=== PATIENT | female | born 2005 | race African-American/Black ===

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

== ENCOUNTER 2024-04-17 00:01 | Emergency (ER) | payer MEDICAID ==
[~2024-04-17] VITALS: Ht 162.6 cm; Wt 58.2 kg
[~2024-04-17 00:01] MED LIST: ACET1CAP14 PO; CEPH-510 PO; MAGN400S25 PO
[2024-04-17] MEDS ORDERED: PANTOPRAZOLE 40 MG TAB PO ONE (01:15)
[2024-04-17] MEDS ORDERED: OMEP-335 PO (01:41)
[2024-04-17 02:00] VITALS: BP 114/77; PULSE 68; RESP 15; TEMP 98.8; O2SAT 100
== END 2024-04-17 02:05 | disposition home or self-care (01) ==
LOC: ER 00:01
DX: K29.70 Gastritis, unspecified, without bleeding (principal); Z79.1 Long term (current) use of non-steroidal anti-inflammatories (NSAID)

== ENCOUNTER 2025-02-08 00:34 | Inpatient (IN) | payer MEDICAID ==
[~2025-02-08] VITALS: Ht 162.6 cm; Wt 57.7 kg
[2025-02-08] VITALS (7 sets, daily range): BP systolic 102–118; BP diastolic 64–85; PULSE 71–97; RESP 16–19; TEMP 97.6–98.1; O2SAT 94–99
[~2025-02-08 00:34] MED LIST changes: +OMEP-335 PO
[2025-02-08 01:15] LABS: Basophils # (auto) 0 10 ^3/uL (0-0.2); Basophils % (auto) 0.4 % (0.0-2.0); Eosinophils # (auto) 0 10 ^3/uL (0-0.8); Eosinophils % (auto) 0.1 % (0.0-7.0); Hematocrit 32.4 % (36.0-46.0); Hemoglobin 10.2 g/dL (12.2-16.2); Lymphocytes # (auto) 0.7 10 ^3/uL (0.4-5.4); Lymphocytes % (auto) 8.4 % (10.0-50.0); Mean Corpuscular Hgb Conc. 31.6 g/dL (32.0-36.0); Mean Corpuscular Volume 69.7 fL (80.0-100.0); Monocytes # (auto) 0.4 10 ^3/uL (0-1.3); Monocytes % (auto) 4.9 % (0.0-12.0); Neutrophils % (auto) 86.2 % (37.0-80.0); Nucleated Red Blood Cells % 0.1 %; Platelet Count (auto) 247 10^3/uL (140-450); Red Blood Cells 4.65 10^6/uL (4.0-5.20); White Blood Cell 8.1 10^3/uL (4.4-10.8)
[2025-02-08 01:37] LABS: Sodium 140 mmol/L (136-145)
[2025-02-08 01:38] LABS: Anion Gap 11 (5-15); Carbon Dioxide 21 mmol/L (20-31)
[2025-02-08 01:39] LABS: Calcium 10.3 mg/dL (8.7-10.4)
[2025-02-08 01:41] LABS: Urine Bacteria FEW /hpf (None Seen); Urine Blood 3+ /uL (Negative); Urine Budding Yeast OCCASIONAL /hpf (None Seen); Urine Clarity Turbid (Clear); Urine Color Light-Yellow (Yellow); Urine Mucus FEW (None Seen); Urine Protein, UAD TRACE (Negative); Urine Squamous Epithelial Cell FEW /hpf (<5); Urine Urobilinogen Normal (Negative); Urine WBC 1 /HPF (0-5); Urine pH 6.5 (5.0-9.0)
[2025-02-08 01:43] LABS: Chloride 108 mmol/L (98-107)
[2025-02-08 01:44] LABS: BUN/Creatinine Ratio 18.6 (10.0-20.0); Blood Urea Nitrogen 18 mg/dL (9-23); Glucose 85 mg/dL (74-106)
--- NOTE | 2025-02-08 01:46 | DVH ---
INDICATION: Bilateral pelvic pain TECHNIQUE: Multiple real-time grayscale transabdominal sonographic images along with color and duplex Doppler of the uterus and ovaries were obtained. COMPARISON: None FINDINGS / IMPRESSION: Uterus measures approximately 8.1 x 4.7 x 5 cm and appears unremarkable. Endometrium measures 7.5 mm in thickness with non abnormality demonstrated. Right ovary measures approximately 3 x 2.6 x 2.5 cm and appears unremarkable. Left ovary could not be visualized. Subsequent color and duplex Doppler interrogation of the ovaries demonstrated symmetric vascular flow to both ovaries.
[2025-02-08] MEDS ORDERED: HYDR-4902 PO (02:31)
[2025-02-08] MEDS ORDERED: IBUP-1454 PO (02:31)
[2025-02-08] MEDS ORDERED: ZOFR4T PO (02:31)
--- NOTE | 2025-02-08 02:32 | ED.PDOC ---
General HPI Comments This patient is a pleasant 19-year-old female who arrives the ED today for evaluation of bilateral lower abdominal/pelvic pain for the past day with intermittent nausea and vomiting. Patient states the symptoms came on quickly and has been relatively unrelenting. Patient denies any fever. Patient does state a history of kidney stones. Patient has a history of ovarian cysts or uterine fibroids. Vital signs were stable at arrival. Chief Complaint: Abdominal Pain Time Seen by MD: 00:39 Primary Care Provider: MARY Matos notes: Nurses Notes Allergies: Coded Allergies: NO KNOWN ALLERGIES (Unverified , 07/19/18) Home Meds Active Scripts Omeprazole (Omeprazole) 20 Mg Tab, 20 MG PO DAILY, #30 TAB Prov:ALONA MAR PAC 04/17/24 Acetaminophen (Tylenol) 325 Mg Cap, 325 MG PO Q4HPRN PRN, #30 CAP 0 Refills Take 1-2 caps po q4h prn for pain/fever Prov:STEPHENIE CHASE [facility] 11/07/22 Magnesium Hydroxide (Milk Of Magnesia) 400 Mg/5 Ml Shanna, 30 ML PO DAILYPRN PRN, #355 ML 0 Refills 30 to 60 mL p.o. daily as needed. Max: 60 mL in 24 hours Prov:STEPHENIE CHASE [facility] 11/07/22 Cephalexin ( Keflex 500) 500 Mg Cap, 1 CAP PO QID for 10 Days, #40 CAP 0 Refills Prov:STEPHENIE CHASE [facility] 11/07/22 Information Source: Patient, Relative (Mother) Mode of Arrival: Wheelchair Severity: Moderate Timing: Hours Duration: Since onset Prehospital treatment: None Onset: Spontaneous Symptoms: None History of: Kidney stone Location: Other (Bilateral lower abdomen/pelvis.) associated signs and symptoms: Abdominal Pain, Nausea, Vomiting Past Medical History PAST MEDICAL HISTORY: Kidney Stones Surgical History: Denies all surgeries SUPERVISING FLOORPERSON History: No Pertinent SUPERVISING FLOORPERSON History Family History Family History: Reviewed,noncontributory to illness, Unknown Social History Smoker: Non-Smoker Alcohol: Denies ETOH Use Drugs: Denies Drug Use Lives In: Home Constitutional: denies: chills, diaphoresis, fatigue, fever, malaise, sweats, weakness, others EENTM: denies: blurred vision, double vision, ear bleeding, ear discharge, ear drainage, ear pain, ear ringing, eye pain, eye redness, hearing loss, mouth pain, mouth swelling, nasal discharge, nose bleeding, nose congestion, nose pain, photophobia, tearing, throat pain, throat swelling, voice changes, others Respiratory: denies: cough, hemoptysis, orthopnea, SOB at rest, shortness of breath, SOB with excertion, stridor, wheezing, others Cardiovascular: denies: chest pain, dizzy spells, diaphoresis, Dyspnea on exertion, edema, irregular heart beat, left arm pain, lightheadedness, palpitations, PND, syncope, others Gastrointestinal: reports: abdominal pain, nausea, vomiting; denies: abdomen distended, blood streaked bowels, constipated, diarrhea, dysphagia, difficulty swallowing, hematemesis, melena, poor appetite, poor fluid intake, rectal bleeding, rectal pain, others Genitourinary: denies: abnormal vagina bleeding, burning, dyspareunia, dysuria, flank pain, frequency, hematuria, incontinence, pain, , vagina discharge, urgency, others Neurological: denies: dizziness, fainting, headache, left sided numbness, left sided weakness, numbness, paresthesia, pre-existing deficit, right sided numbness, right sided weakness, seizure, speech problems, tingling, tremors, weakness, others Musculoskeletal: denies: back pain, gout, joint pain, joint swelling, muscle pain, muscle stiffness, neck pain, others Integumetry: denies: bruises, change in color, change in hair/nails, dryness, laceration, lesions, lumps, rash, wounds, others Allergic/Immunocompromised: denies: Difficulty Healing, Frequent Infections, Hives, Itching, others Hematologic/Lymphatic: denies: anemia, blood clots, easy bleeding, easy bruising, swollen glands, others Endocrine: denies: excessive hunger, excessive sweating, excessive thirst, excessive urination, flushing, intolerance to cold, intolerance to heat, unexplained weight gain, unexplained weight loss, others Psychiatric: denies: anxiety, bipolar disorder, depression, hopeless, panic disorder, schizophrenia, sleepless, suicidal, others Physical Exam General Appearance: Moderate Distress (Moderate distress due to lower abdominal pain concerns.), Normal HEENT: Normal ENT Inspection, Pharynx Normal, TMs Normal Neck: Full Range of Motion, Non-Tender, Normal, Normal Inspection Respiratory: Chest Non-Tender, Lungs Clear, No Accessory Muscle Use, No Respiratory Distress, Normal Breath Sounds Cardiovascular: No Edema, No JVD, No Murmur, No Gallop, Normal Peripheral Pulses, Regular Rate/Rhythm Breast Exam: Deferred Gastrointestinal: Other (Diffuse bilateral lower abdominal/pelvic tenderness to palpation. Abdomen was reasonably soft. No pulsatile masses.) Genitalia: Deferred Pelvic: Deferred Rectal: Deferred Extremities: No calf tenderness, Normal capillary refill, Normal inspection, Normal range of motion, Non-tender, No pedal edema Neurologic: Alert, No Motor Deficits, Normal Affect, Normal Mood, No Sensory D eficits Cerebellar Function: Normal Reflexes: Normal Skin: Dry, Normal Color, Warm Lymphatic: No Adenopathy Was a procedure done? Was a procedure done?: No Differential Diagnosis Kidney stone (Female): Urinary obstruction, Urolithiasis, Other (UTI, ovarian cyst, uterine fibroids, constipation) X-Ray, Labs, Meds, VS Vital Signs Date Time Temp Pulse Resp B/P (MAP) Pulse Ox O2 Delivery O2 Flow Rate FiO2 02/08/25 00:50 98.5 89 16 136/76 (96) 98 98.5 Lab Test 02/08/25 01:00 02/08/25 00:50 Range/Units White Blood Count 8.1 4.4-10.8 10^3/uL Red Blood Count 4.65 4.0-5.20 10^6/uL Hemoglobin 10.2 L 12.2-16.2 g/dL Hematocrit 32.4 L 36.0-46.0 % Mean Corpuscular Volume 69.7 L 80.0-100.0 fL Mean Corpuscular Hemoglobin 22.0 L 28.0-32.0 pg Mean Corpuscular Hemoglobin Concent 31.6 L 32.0-36.0 g/dL Red Cell Distribution Width 16.0 H 11.8-14.3 % Platelet Count 247 140-450 10^3/uL Mean Platelet Volume 7.8 6.9-10.8 fL Neutrophils (%) (Auto) 86.2 H 37.0-80.0 % Lymphocytes (%) (Auto) 8.4 L 10.0-50.0 % Monocytes (%) (Auto) 4.9 0.0-12.0 % Eosinophils (%) (Auto) 0.1 0.0-7.0 % Basophils (%) (Auto) 0.4 0.0-2.0 % Neutrophils # (Auto) 7.0 1.6-8.6 10 ^3/uL Lymphocytes # (Auto) 0.7 0.4-5.4 10 ^3/uL Monocytes # (Auto) 0.4 0-1.3 10 ^3/uL Eosinophils # (Auto) 0 0-0.8 10 ^3/uL Basophils # (Auto) 0 0-0.2 10 ^3/uL Nucleated Red Blood Cells 0.1 % Sodium Level 140 136-145 mmol/L Potassium Level 4.0 3.5-5.1 mmol/L Chloride Level 108 H 98-107 mmol/L Carbon Dioxide Level 21 20-31 mmol/L Anion Gap 11 5-15 Blood Urea Nitrogen 18 9-23 mg/dL Creatinine 0.97 0.550-1.02 mg/dL Glomerular Filtration Rate Calc 85 >90 mL/min BUN/Creatinine Ratio 18.6 10.0-20.0 Serum Glucose 85 74-106 mg/dL Calcium Level 10.3 8.7-10.4 mg/dL Urine Color Light-yellow Yellow Urine Clarity Turbid H Clear Urine pH 6.5 5.0-9.0 Urine Specific [place] 1.030 1.001-1.035 Urine Protein Trace H Negative Urine Ketones 3+ H Negative Urine Blood 3+ H Negative /uL Urine Nitrite Negative Negative Urine Bilirubin Negative Negative Urine Urobilinogen Normal Negative mg/dL Urine Leukocyte Esterase Negative Negative /uL Urine RBC 512 0 - 4 /hpf Urine Microscopic WBC 1 0-5 /HPF Urine Squamous Epithelial Cells Few <5 /hpf Urine Bacteria Few H None Seen /hpf Urine Mucus Few None Seen Urine Yeast (Budding) Occasional None Seen /hpf Urine Glucose Normal Normal mg/dL Urine Test Negative Negative X-Ray, Labs, Meds, VS Comment All studies performed the ED were evaluated by me personally. Serum studies were unremarkable for any systemic process, but urinalysis confirmed a large red blood cell burden indicative of a kidney stone event. Pelvic ultrasound was unremarkable for any ovarian cyst or fibroid concerns. CT of the abdomen and pelvis pending at time of this note. Patient care will be transferred to Dr. White for evaluation of CT results when returned. Once reviewed, she will respond accordingly. Time of 1ST Reevaluation: 02:29 Reevaluation 1ST: Improved Consultation: PCP Patient Education/Counseling: Diagnosis, Treatment Family Education/Counseling: Diagnosis, Treatment Departure 1 Departure Time of Disposition: : Impression: Primary Impression: Hematuria Disposition: 30 STILL A PATIENT Condition: Stable e-Prescriptions Ondansetron Odt 4MG Tab (ZOFRAN PO) 4 Mg Tb 4 MG PO Q6HP PRN, #20 TAB ODT TAB-DISSOLVE IN MOUTH, THEN SWALLOW Prov: HAN DICKENS PAC 02/08/25 Hydrocodone-Acetaminophen (Hydrocodone Bitartrate/AC 5-325 mg) 1 Tab Tab 1 TAB PO Q6HP PRN, #20 TAB Prov: HAN DICKENS PAC 02/08/25 Ibuprofen (Ibuprofen) 600 Mg Tab 1 TAB PO Q6HP PRN, #30 TAB Prov: HAN DICKENS PAC 02/08/25 Discharged With: Self, Relative (Mother) Critical Care Note Critical Care Time?: No Stability Stability form required: No Heart Score Heart Score: Heart Score Response (Comments) Value History N/A 0 EKG N/A 0 Age N/A 0 Risk Factors N/A 0 Troponin N/A 0 Total 0 HAN DICKENS PAC February 08, 2025 02:32
--- NOTE | 2025-02-08 03:14 | DVH ---
Exam: CT CT AB PEL WO CON-NO ORAL OR IV History: Hematuria/kidney stone concerns Comparison Study: None Technique: Multidetector spiral CT of the abdomen was performed from lung bases to pubic symphysis. I maging was performed without IV contrast. Axial, coronal and sagittal multiplanar reformats were obta ined from the axial data set by the technologist. Radiation Dose : 1. Abdomen/Pelvis: CTDIvol 5.45 mGy, DLP 316.95 mGy*cm. Findings: Evaluation of solid organs is limited due to lack of intravenous contrast use. Lung Bases: No acute or significant lung base finding. Normal heart size. No pleural or pericardial effusion. Liver: The liver is normal in size. No focal lesions. Gallbladder and Biliary Tree: Unremarkable Spleen: Unremarkable Pancreas: The pancreas is grossly normal in appearance. Adrenal Glands: Unremarkable Kidneys: Moderate right hydronephrosis secondary to a partially obstructing proximal ureteral calculu s measuring 0.3 cm. The left kidney is normal in appearance. Bladder: Grossly unremarkable for degree of distention. Bowel: The stomach is grossly normal in appearance. Small bowel and colon are normal in caliber and d istribution. The appendix is not visualized; however, no secondary findings of acute appendicitis kelli ntified. Ascites: Likely physiologic pelvic cul-de-sac free fluid. Lymphadenopathy: No mesenteric, retroperitoneal or periportal lymphadenopathy. Abdominal Wall and Mesentery: Unremarkable. Vasculature: The visualized abdominal aorta is normal in size and caliber. Evaluation of abdominal a nd pelvic vessels is limited due to lack of intravenous contrast. Pelvic Organs: Unremarkable Musculoskeletal: No aggressive focal bony lesions, acute fractures or dislocation. IMPRESSION: 1. Moderate right hydronephrosis secondary to a partially obstructing proximal 0.3 cm ureteral calcul us. Radiation optimization: All CT scans at this facility use at least one of these dose optimization jason hniques: automated exposure control mA and/or kV adjustment per patient size (includes targeted exam s where dose is matched to clinical indication) or iterative reconstruction.
[2025-02-08] MEDS: HYDROcodone-ACET 10/325MG TAB PO ONE (03:19)
[2025-02-08] MEDS ORDERED: MORPHINE SULFATE INJ 2 MG/ml SYRG IV PRN (07:15)
--- NOTE | 2025-02-08 07:24 | DVHHP2 ---
History of Present Illness Reason for Visit: Abdominal pain History of Present Illness Anuradha Blake is a 19-year-old female with past medical history of kidney stones who presents to the ED with suprapubic abdominal pain with nausea and vomiting x2 days. She reports that the current pain after the medication is 1/10 cramping like and intermittent in nature. She also reports that she vomited clear contents and food particles. She denies any recent sick contacts, recent trauma or injury, recent ingestion of spoiled food, recent travels, fever, chills, chest pain, shortness of breath, lightheadedness, weakness, dizziness, or diarrhea. She stated that 4 years ago she has a history of kidney stones and was told that she would be able to have that passed through. Elsie Emilia at the bedside. Past Medical History Kidney stones Past Surgical History: None Family History: None Smoke: No ALCOHOL: occassional Drugs: Marijuana Lives: with Family Domestic Violence: Neg Review of Systems Gastrointestinal: Nausea, Vomiting, Abdominal Pain Allergies: Coded Allergies: NO KNOWN ALLERGIES (Unverified , 07/19/18) Exam Vital Signs Vital Signs Date Time Temp Pulse Resp B/P (MAP) Pulse Ox O2 Delivery O2 Flow Rate FiO2 02/08/25 04:51 98.6 99 14 117/71 (86) 100 98.6 02/08/25 03:20 Room Air* 0 21 General Appearance: Alert, Oriented X3, Cooperative, No acute distress HEENT: Atraumatic, PERRLA, EOMI, Mucous membr. moist/pink Respiratory: Clear to auscultation, Normal air movement Cardiovascular: Regular rate, Normal S1, Normal S2, No murmurs Abdominal: Normal bowel sounds, Soft Extremities: No clubbing, No cyanosis, No edema, Normal pulses, No tenderness/swelling Skin: No significant lesion Neuro: Normal speech, Strength at 5/5 X4 ext, Normal tone, Sensation intact Psych/Mental Status: Mental status NL, Mood NL Labs/Xrays Labs Test 02/08/25 01:00 02/08/25 00:50 Range/Units White Blood Count 8.1 4.4-10.8 10^3/uL Red Blood Count 4.65 4.0-5.20 10^6/uL Hemoglobin 10.2 L 12.2-16.2 g/dL Hematocrit 32.4 L 36.0-46.0 % Mean Corpuscular Volume 69.7 L 80.0-100.0 fL Mean Corpuscular Hemoglobin 22.0 L 28.0-32.0 pg Mean Corpuscular Hemoglobin Concent 31.6 L 32.0-36.0 g/dL Red Cell Distribution Width 16.0 H 11.8-14.3 % Platelet Count 247 140-450 10^3/uL Mean Platelet Volume 7.8 6.9-10.8 fL Neutrophils (%) (Auto) 86.2 H 37.0-80.0 % Lymphocytes (%) (Auto) 8.4 L 10.0-50.0 % Monocytes (%) (Auto) 4.9 0.0-12.0 % Eosinophils (%) (Auto) 0.1 0.0-7.0 % Basophils (%) (Auto) 0.4 0.0-2.0 % Neutrophils # (Auto) 7.0 1.6-8.6 10 ^3/uL Lymphocytes # (Auto) 0.7 0.4-5.4 10 ^3/uL Monocytes # (Auto) 0.4 0-1.3 10 ^3/uL Eosinophils # (Auto) 0 0-0.8 10 ^3/uL Basophils # (Auto) 0 0-0.2 10 ^3/uL Nucleated Red Blood Cells 0.1 % Sodium Level 140 136-145 mmol/L Potassium Level 4.0 3.5-5.1 mmol/L Chloride Level 108 H 98-107 mmol/L Carbon Dioxide Level 21 20-31 mmol/L Anion Gap 11 5-15 Blood Urea Nitrogen 18 9-23 mg/dL Creatinine 0.97 0.550-1.02 mg/dL Glomerular Filtration Rate Calc 85 >90 mL/min BUN/Creatinine Ratio 18.6 10.0-20.0 Serum Glucose 85 74-106 mg/dL Calcium Level 10.3 8.7-10.4 mg/dL Urine Color Light-yellow Yellow Urine Clarity Turbid H Clear Urine pH 6.5 5.0-9.0 Urine Specific [place] 1.030 1.001-1.035 Urine Protein Trace H Negative Urine Ketones 3+ H Negative Urine Blood 3+ H Negative /uL Urine Nitrite Negative Negative Urine Bilirubin Negative Negative Urine Urobilinogen Normal Negative mg/dL Urine Leukocyte Esterase Negative Negative /uL Urine RBC 512 0 - 4 /hpf Urine Microscopic WBC 1 0-5 /HPF Urine Squamous Epithelial Cells Few <5 /hpf Urine Bacteria Few H None Seen /hpf Urine Mucus Few None Seen Urine Yeast (Budding) Occasional None Seen /hpf Urine Glucose Normal Normal mg/dL Urine Test Negative Negative Exam: CT CT AB PEL WO CON-NO ORAL OR IV History: Hematuria/kidney stone concerns Comparison Study: None Technique: Multidetector spiral CT of the abdomen was performed from lung bases to pubic symphysis. Imaging was performed without IV contrast. Axial, coronal and sagittal multiplanar reformats were obtained from the axial data set by the technologist. Radiation Dose : 1. Abdomen/Pelvis: CTDIvol 5.45 mGy, DLP 316.95 mGy*cm. Findings: Evaluation of solid organs is limited due to lack of intravenous contrast use. Lung Bases: No acute or significant lung base finding. Normal heart size. No pleural or pericardial effusion. Liver: The liver is normal in size. No focal lesions. Gallbladder and Biliary Tree: Unremarkable Spleen: Unremarkable Pancreas: The pancreas is grossly normal in appearance. Adrenal Glands: Unremarkable Kidneys: Moderate right hydronephrosis secondary to a partially obstructing proximal ureteral calculus measuring 0.3 cm. The left kidney is normal in appearance. Bladder: Grossly unremarkable for degree of distention. Bowel: The stomach is grossly normal in appearance. Small bowel and colon are normal in caliber and distribution. The appendix is not visualized; however, no secondary findings of acute appendicitis identified. Ascites: Likely physiologic pelvic cul-de-sac free fluid. Lymphadenopathy: No mesenteric, retroperitoneal or periportal lymphadenopathy. Abdominal Wall and Mesentery: Unremarkable. Vasculature: The visualized abdominal aorta is normal in size and caliber. Evaluation of abdominal and pelvic vessels is limited due to lack of intravenous contrast. Pelvic Organs: Unremarkable Musculoskeletal: No aggressive focal bony lesions, acute fractures or dislocation. IMPRESSION: 1. Moderate right hydronephrosis secondary to a partially obstructing proximal 0.3 cm ureteral calculus. INDICATION: Bilateral pelvic pain TECHNIQUE: Multiple real-time grayscale transabdominal sonographic images along with color and duplex Doppler of the uterus and ovaries were obtained. COMPARISON: None FINDINGS / IMPRESSION: Uterus measures approximately 8.1 x 4.7 x 5 cm and appears unremarkable. Endometrium measures 7.5 mm in thickness with non abnormality demonstrated. Right ovary measures approximately 3 x 2.6 x 2.5 cm and appears unremarkable. Left ovary could not be visualized. Subsequent color and duplex Doppler interrogation of the ovaries demonstrated symmetric vascular flow to both ovaries. Assessment/Plan Assessment/Plan Assessment Intractable abdominal pain likely due to moderate right hydronephrosis secondary to a partially obstructing proximal 0.3 cm ureteral calculus Anemia Marijuana use Alcohol use History of nephrolithiasis Plan Admit to med surge Antiemetics Pain management CT abdomen and pelvis noted Pelvic ultrasound noted UA Flomax Strain all urine Adequate hydration IV fluids Diet Per patient she takes no home medications DVT prophylaxis-SCDs PUD prophylaxis-not indicated no history of GERD or GI bleed Discussed plan of care with patient, patient's mom, and nurse Counseled patient on cessation of marijuana use Counseled patient on cessation of alcohol use Plan discussed with: Patient My Orders Orders - GUY VELAZQUEZ Procedure Category Date Status Time Tamsulosin PHA 02/08/25 Transmitted Hydrochloride (Flomax) 07:15 Admit ADMIT 02/08/25 Transmitted 07:12 Allergies FARHAD 02/08/25 Transmitted 07:12 Code Status CODE 02/08/25 Transmitted 07:12 Hydrocodone-Acet PHA 02/08/25 Transmitted 5/325mg Tab (Bomoseen 07:15 Ondansetron Hcl PHA 02/08/25 Transmitted (Zofran) 07:15 Complete Blood Count LAB 02/09/25 Verified 04:00 Comprehensive LAB 02/09/25 Verified Metabolic Panel 04:00 Cardiac DIET 02/08/25 Transmitted Diet-2gna,Lofat,Lochol Breakfast Acetaminophen Tablet PHA 02/08/25 Transmitted (Tylenol Tablet) 07:15 Morphine Sulfate PHA 02/08/25 Transmitted Injection 07:15 Sequential FARHAD 02/08/25 Transmitted Compression Device Strain All Urine ED NURSING 02/08/25 Transmitted Date of Service: February 08, 2025 Billing Provider: GUY VELAZQUEZ Common Visit Codes: [id number] INP/OBS CARE (HIGH) GUY VELAZQUEZ February 08, 2025 07:24
[2025-02-08] MEDS: ONDANSETRON HCL 4 MG/2 ML VIAL IV ONE (07:59)
[2025-02-08] MEDS: TAMSULOSIN HYDROCHLORIDE 0.4 MG CAP PO SCH (08:59)
[2025-02-08] MEDS: SODIUM CHLORIDE 0.9% 1,000 ML IV SCH (09:01)
[2025-02-08] MEDS: INFLUENZA TRIVALENT 2024-2025 0.5 ML INJ IM ONE (12:08)
[2025-02-08] MEDS: HYDROcodone-ACET 5/325MG TAB PO PRN (15:32)
--- NOTE | 2025-02-08 23:07 | DVHPN2 ---
Gastrointestinal: Nausea, Vomiting, Abdominal Pain Objective Vitals Vital Signs Date Time Temp Pulse Resp B/P (MAP) Pulse Ox O2 Delivery O2 Flow Rate FiO2 02/08/25 21:00 97.9 85 19 109/64 (79) 96 97.9 02/08/25 20:00 Room Air* 0 21 Medications Current Medications Medications Dose Ordered Sig/Ninfa Route Start Time Stop Time Status Last Admin Dose Admin Tamsulosin HCl 0.4 mg QPM PO 02/08/25 07:15 02/08/25 18:05 0.4 MG Acetaminophen/ Hydrocodone Bitart 1 tab Q4HP PRN PO 02/08/25 07:15 02/08/25 15:32 1 TAB Ondansetron HCl 4 mg Q4HP PRN IV 02/08/25 07:15 Acetaminophen 650 mg Q6HP PRN PO 02/08/25 07:15 Morphine Sulfate 2 mg Q4HPRN PRN IV 02/08/25 07:15 Sodium Chloride 1,000 ml @ 100 mls/hr Q10H IV 02/08/25 08:00 02/08/25 18:07 100 MLS/HR Laboratory Results Laboratory Tests 02/08/25 01:00 Chemistry Test 02/08/25 01:00 Calcium Level 10.3 mg/dL (8.7-10.4) Urinalysis Test 02/08/25 00:50 Urine Color Light-yellow (Yellow) Urine Clarity Turbid (Clear) H Urine pH 6.5 (5.0-9.0) Urine Specific [place] 1.030 (1.001-1.035) Urine Protein Trace (Negative) H Urine Ketones 3+ (Negative) H Urine Blood 3+ /uL (Negative) H Urine Nitrite Negative (Negative) Urine Bilirubin Negative (Negative) Urine Urobilinogen Normal mg/dL (Negative) Urine Leukocyte Esterase Negative /uL (Negative) Urine RBC 512 /hpf (0 - 4) Urine Microscopic WBC 1 /HPF (0-5) Urine Squamous Epithelial Cells Few /hpf (<5) Urine Bacteria Few /hpf (None Seen) H Urine Mucus Few (None Seen) Urine Yeast (Budding) Occasional /hpf (None Urine Glucose Normal mg/dL (Normal) Urine Test Negative (Negative) ARGELIA STEVENSON MD February 08, 2025 23:06
[2025-02-09 05:00] VITALS: BP 118/67; PULSE 86; RESP 18; TEMP 97.7; O2SAT 99
[2025-02-09 06:29] LABS: Basophils # (auto) 0 10 ^3/uL (0-0.2); Hemoglobin 9.3 g/dL (12.2-16.2); Lymphocytes # (auto) 0.7 10 ^3/uL (0.4-5.4); Mean Corpuscular Volume 69.9 fL (80.0-100.0); Monocytes # (auto) 0.6 10 ^3/uL (0-1.3); Neutrophils # (auto) 2.2 10 ^3/uL (1.6-8.6); Nucleated Red Blood Cells % 0.1 %; White Blood Cell 3.6 10^3/uL (4.4-10.8)
[2025-02-09 06:31] LABS: Basophils % (auto) 0.6 % (0.0-2.0); Eosinophils # (auto) 0 10 ^3/uL (0-0.8); Eosinophils % (auto) 1.4 % (0.0-7.0); Hematocrit 29.2 % (36.0-46.0); Lymphocytes % (auto) 18.4 % (10.0-50.0); Mean Corpuscular Hemoglobin 22.3 pg (28.0-32.0); Mean Corpuscular Hgb Conc. 31.9 g/dL (32.0-36.0); Monocytes % (auto) 17.3 % (0.0-12.0); Neutrophils % (auto) 62.3 % (37.0-80.0); Platelet Count (auto) 204 10^3/uL (140-450); Red Blood Cells 4.17 10^6/uL (4.0-5.20); Red Cell Distribution Width 16.1 % (11.8-14.3)
[2025-02-09 06:45] LABS: Alanine Aminotransferase 13 U/L (7-40); Alkaline Phosphatase 48 U/L (46-116); Anion Gap 9 (5-15); BUN/Creatinine Ratio 11.3 (10.0-20.0); Blood Urea Nitrogen 9 mg/dL (9-23); Calcium 9.4 mg/dL (8.7-10.4); Carbon Dioxide 22 mmol/L (20-31); Glucose 83 mg/dL (74-106); Potassium 3.7 mmol/L (3.5-5.1); Sodium 139 mmol/L (136-145); Total Protein 6.9 g/dL (5.7-8.2)
[2025-02-09 06:46] LABS: Aspartate Aminotransferase 22 U/L (13-40); Bilirubin, Total 0.3 mg/dL (0.2-1.0)
[2025-02-09 06:56] LABS: Chloride 108 mmol/L (98-107)
[2025-02-09 09:00] VITALS: BP 118/78; PULSE 86; RESP 18; TEMP 97.9; O2SAT 97
[2025-02-09] MEDS: ONDANSETRON HCL 4 MG/2 ML VIAL IV PRN (09:15)
[2025-02-09 13:00] VITALS: BP 113/82; PULSE 87; RESP 18; TEMP 96.8; O2SAT 98
--- NOTE | 2025-02-09 14:34 | DVH ---
Date: 02/09/2025 02:00 PM Examination: XY KUB ABDOMEN SINGLE VIEW History: kidney stone Comparison: None TECHNIQUE: Frontal views of the abdomen was obtained. FINDINGS: Bowel gas pattern is unremarkable. The lung bases are unremarkable. No acute osseous abnormality identified. IMPRESSION: Nonobstructive bowel gas pattern. Large stool burden.
[2025-02-09 17:00] VITALS: BP 114/68; PULSE 84; RESP 18; TEMP 96.7; O2SAT 99
--- NOTE | 2025-02-09 23:07 | DVHPN2 ---
Subjective The patient is seen and examined at bedside. Still complain of severe abdominal pain and nausea. Reviewed: Care Plan, H&P, Labs, Medications, Previous Orders, Radiology Changes from previous H/P or p: No Changes Gastrointestinal: Nausea, Vomiting, Abdominal Pain Objective Vitals Vital Signs Date Time Temp Pulse Resp B/P (MAP) Pulse Ox O2 Delivery O2 Flow Rate FiO2 02/09/25 20:00 Room Air* 0 21 02/09/25 17:00 96.7 84 18 114/68 (83) 99 96.7 Intake/Output Intake and Output 02/09/25 07:00 Intake Total 2400 ml Balance 2400 ml Intake Oral 1400 ml IV Total 1000 ml # Voids 4 General Appearance: Alert, Oriented X3, Cooperative, mild distress HEENT: Atraumatic, PERRLA, EOMI, Mucous membr. moist/pink Neck: Supple Lungs: Clear to auscultation, Normal air movement Cardiovascular: Regular rate, Normal S1, Normal S2, No murmurs, Gallops, Rubs Abdomen: Normal bowel sounds, Soft, No tenderness Neuro: Cranial nerves 3-12 NL Psych/Mental Status: Mental status NL Medications Current Medications Medications Dose Ordered Sig/Ninfa Route Start Time Stop Time Status Last Admin Dose Admin Tamsulosin HCl 0.4 mg QPM PO 02/08/25 07:15 02/09/25 17:47 0.4 MG Acetaminophen/ Hydrocodone Bitart 1 tab Q4HP PRN PO 02/08/25 07:15 02/09/25 09:31 1 TAB Ondansetron HCl 4 mg Q4HP PRN IV 02/08/25 07:15 02/09/25 09:15 4 MG Acetaminophen 650 mg Q6HP PRN PO 02/08/25 07:15 Morphine Sulfate 2 mg Q4HPRN PRN IV 02/08/25 07:15 Sodium Chloride 1,000 ml @ 100 mls/hr Q10H IV 02/08/25 08:00 02/09/25 04:29 100 MLS/HR Laboratory Results Laboratory Tests 02/09/25 05:47 Chemistry Test 02/09/25 05:47 Albumin 4.0 g/dL (3.2-4.8) Calcium Level 9.4 mg/dL (8.7-10.4) Total Protein 6.9 g/dL (5.7-8.2) LFT Test 02/09/25 05:47 Alanine Aminotransferase (ALT) 13 U/L (7-40) Alkaline Phosphatase 48 U/L (46-116) Aspartate Amino Transferase (AST) 22 U/L (13-40) Total Bilirubin 0.3 mg/dL (0.2-1.0) Urinalysis Test 02/08/25 00:50 Urine Color Light-yellow (Yellow) Urine Clarity Turbid (Clear) H Urine pH 6.5 (5.0-9.0) Urine Specific [place] 1.030 (1.001-1.035) Urine Protein Trace (Negative) H Urine Ketones 3+ (Negative) H Urine Blood 3+ /uL (Negative) H Urine Nitrite Negative (Negative) Urine Bilirubin Negative (Negative) Urine Urobilinogen Normal mg/dL (Negative) Urine Leukocyte Esterase Negative /uL (Negative) Urine RBC 512 /hpf (0 - 4) Urine Microscopic WBC 1 /HPF (0-5) Urine Squamous Epithelial Cells Few /hpf (<5) Urine Bacteria Few /hpf (None Seen) H Urine Mucus Few (None Seen) Urine Yeast (Budding) Occasional /hpf (None Urine Glucose Normal mg/dL (Normal) Urine Test Negative (Negative) Labs and/or images reviewed: Labs reviewed by me Assessment/Plan Assessment/Plan Intractable abdominal pain likely due to moderate right hydronephrosis secondary to a partially obstructing proximal 0.3 cm ureteral calculus Anemia Marijuana use Alcohol use History of nephrolithiasis Continuing current management. Continuing with IV fluid. Continuing with pain medication.. Advised to stop drinking alcohol more than 15 minutes. Urology consulted. This medical document was created using an electronic medical record system with [employer] direct computerized dictation system. Although this document has been carefully reviewed, there may still be some phonetic and typographical errors. These areas are purely typographical due to imperfections of the software programs, and do not reflect any compromise in the patient's medical care. Plan discussed with: Patient My Orders Orders - ARGELIA STEVENSON MD Procedure Category Date Status Time Kub Abdomen Single XY 02/09/25 Resulted View 12:51 * Urology Consult CONS 02/09/25 Transmitted 12:51 Date of Service: February 09, 2025 Billing Provider: ARGELIA STEVENOSN MD Common Visit Codes: [id number] INP/OBS CARE(HIGH) ARGELIA STEVENSON MD February 09, 2025 23:07
[2025-02-09 23:43] VITALS: BP 112/74; PULSE 74; RESP 17; TEMP 98; O2SAT 100
[2025-02-10] VITALS (7 sets, daily range): BP systolic 94–118; BP diastolic 54–77; PULSE 76–88; RESP 15–18; TEMP 97.8–98.6; O2SAT 93–100
[2025-02-10 07:48] LABS: Anion Gap 10 (5-15); Carbon Dioxide 23 mmol/L (20-31); Potassium 3.9 mmol/L (3.5-5.1); Sodium 140 mmol/L (136-145)
[2025-02-10 07:49] LABS: Calcium 9.6 mg/dL (8.7-10.4)
[2025-02-10 07:54] LABS: BUN/Creatinine Ratio 7.3 (10.0-20.0); Blood Urea Nitrogen 6 mg/dL (9-23); Chloride 107 mmol/L (98-107); Glucose 81 mg/dL (74-106)
[2025-02-10 08:09] LABS: Basophils # (auto) 0 10 ^3/uL (0-0.2); Basophils % (auto) 0.8 % (0.0-2.0); Hematocrit 31.1 % (36.0-46.0); Hemoglobin 9.9 g/dL (12.2-16.2); Lymphocytes # (auto) 1.3 10 ^3/uL (0.4-5.4); Monocytes # (auto) 0.6 10 ^3/uL (0-1.3); Neutrophils # (auto) 1.2 10 ^3/uL (1.6-8.6)
[2025-02-10 08:13] LABS: Eosinophils # (auto) 0 10 ^3/uL (0-0.8); Eosinophils % (auto) 1.5 % (0.0-7.0); Lymphocytes % (auto) 40.9 % (10.0-50.0); Mean Corpuscular Hemoglobin 22.3 pg (28.0-32.0); Mean Corpuscular Hgb Conc. 31.9 g/dL (32.0-36.0); Mean Corpuscular Volume 69.8 fL (80.0-100.0); Neutrophils % (auto) 38.4 % (37.0-80.0); Nucleated Red Blood Cells % 0.1 %; Platelet Count (auto) 216 10^3/uL (140-450); Red Blood Cells 4.45 10^6/uL (4.0-5.20); Red Cell Distribution Width 16.4 % (11.8-14.3); White Blood Cell 3.1 10^3/uL (4.4-10.8)
[2025-02-10 08:35] LABS: Monocytes % (auto) 18.4 % (0.0-12.0)
[2025-02-10] MEDS: ACETAMINOPHEN 325 MG TAB PO PRN (10:40)
--- NOTE | 2025-02-10 10:43 | DVHPN2 ---
Progress Note Date Seen: February 10, 2025 Medical Necessity Reason Pt with a Central, PICC or Fol: No Subjective Patient reports: No new complaints Review of Systems: HEENT:Normal, CVS:Normal, RESPIRATORY:Normal, GI:Normal, :Normal, MSK:Normal, NEURO:Normal Objective vital signs Vital Sign Date Time Temp Pulse Resp B/P (MAP) Pulse Ox O2 Delivery O2 Flow Rate FiO2 02/10/25 09:00 98.6 88 16 106/77 (87) 93 98.6 02/10/25 08:00 Room Air* 0 21 Total Intake and Output 02/09/25 02/09/25 02/10/25 15:00 23:00 07:00 Intake Total 1280 ml 2330.6 ml Balance 1280 ml 2330.6 ml medications Current Medications Medications Dose Ordered Sig/Ninfa Route Start Time Stop Time Status Last Admin Dose Admin Tamsulosin HCl 0.4 mg QPM PO 02/08/25 07:15 02/09/25 17:47 0.4 MG Acetaminophen/ Hydrocodone Bitart 1 tab Q4HP PRN PO 02/08/25 07:15 02/09/25 09:31 1 TAB Ondansetron HCl 4 mg Q4HP PRN IV 02/08/25 07:15 02/09/25 09:15 4 MG Acetaminophen 650 mg Q6HP PRN PO 02/08/25 07:15 Morphine Sulfate 2 mg Q4HPRN PRN IV 02/08/25 07:15 Sodium Chloride 1,000 ml @ 100 mls/hr Q10H IV 02/08/25 08:00 02/10/25 01:14 100 MLS/HR Examination: GENERAL:Normal, HEENT:Normal, NECK:Normal, LUNGS:Normal, CVS:Normal, ABDOMEN:Normal, MSK:Normal, SKIN:Normal, NEURO:Normal, :Normal laboratory and microbiology Laboratory Tests 02/10/25 07:06 Test 02/10/25 07:06 Range/Units Serum Glucose 81 74-106 mg/dL Problem List/Assessment/Plan Problem List/Assessment/Plan #1 right renal stone with hydronephrosis: kub in am #2 anemia #3 ?fecal impaction: bowel regimen Plan discussed with: Patient My Orders My Orders Orders - JASON LAROSE MD Procedure Category Date Status Time Lactulose Oral PHA 02/10/25 Verified 10:45 Docusate Sodium PHA 02/10/25 Verified Capsule (Colace 10:45 Kub Abdomen Single XY 02/11/25 Verified View 06:00 Date of Service: February 10, 2025 Billing Provider: JASON LAROSE MD Common Visit Codes: [id number] INP/OBS CARE(HIGH) JASON LAROSE MD February 10, 2025 10:43
[2025-02-10] MEDS: DOCUSATE SOD 100 MG CAP PO ONE (12:53)
[2025-02-10] MEDS: LACTULOSE 20Gm/30ML SOLN PO ONE (12:54)
[2025-02-11 01:00] VITALS: BP 94/60; PULSE 77; RESP 15; TEMP 98.2; O2SAT 100
[2025-02-11 04:59] VITALS: BP 113/68; PULSE 79; RESP 16; TEMP 98.1; O2SAT 99
--- NOTE | 2025-02-11 07:17 | DVH ---
EXAM: XR Abdomen, 1 View CLINICAL INDICATION: kidney stone TECHNIQUE: Frontal supine view of the abdomen/pelvis. COMPARISON: XY KUB ABDOMEN SINGLE VIEW on DOS: 02/09/25 FINDINGS: GASTROINTESTINAL TRACT: Fecal retention in the colon consistent with constipation. No dilation. BONES/JOINTS: Unremarkable. No acute fracture. OTHER FINDINGS: . IMPRESSION: Fecal retention in the colon consistent with constipation.
[2025-02-11 09:00] VITALS: BP 111/75; PULSE 54; RESP 16; TEMP 97.9; O2SAT 92
--- NOTE | 2025-02-11 10:46 | DVHDS2 ---
Discharge Summary Date of Admission February 08, 2025 at 07:12 Date of Discharge: February 11, 2025 Labs/Diagnostic Data: Laboratory Results Test 02/10/25 07:06 02/09/25 05:47 02/08/25 00:50 White Blood Count 3.1 10^3/uL (4.4-10.8) Red Blood Count 4.45 10^6/uL (4.0-5.20) Hemoglobin 9.9 g/dL (12.2-16.2) Hematocrit 31.1 % (36.0-46.0) Mean Corpuscular Volume 69.8 fL (80.0-100.0) Mean Corpuscular Hemoglobin 22.3 pg (28.0-32.0) Mean Corpuscular Hemoglobin Concent 31.9 g/dL (32.0-36.0) Red Cell Distribution Width 16.4 % (11.8-14.3) Platelet Count 216 10^3/uL (140-450) Mean Platelet Volume 8.2 fL (6.9-10.8) Neutrophils (%) (Auto) 38.4 % (37.0-80.0) Lymphocytes (%) (Auto) 40.9 % (10.0-50.0) Monocytes (%) (Auto) 18.4 % (0.0-12.0) Eosinophils (%) (Auto) 1.5 % (0.0-7.0) Basophils (%) (Auto) 0.8 % (0.0-2.0) Neutrophils # (Auto) 1.2 10 ^3/uL (1.6-8.6) Lymphocytes # (Auto) 1.3 10 ^3/uL (0.4-5.4) Monocytes # (Auto) 0.6 10 ^3/uL (0-1.3) Eosinophils # (Auto) 0 10 ^3/uL (0-0.8) Basophils # (Auto) 0 10 ^3/uL (0-0.2) Nucleated Red Blood Cells 0.1 % Sodium Level 140 mmol/L (136-145) Potassium Level 3.9 mmol/L (3.5-5.1) Chloride Level 107 mmol/L (98-107) Carbon Dioxide Level 23 mmol/L (20-31) Anion Gap 10 (5-15) Blood Urea Nitrogen 6 mg/dL (9-23) Creatinine 0.82 mg/dL (0.550-1.02) Glomerular Filtration Rate Calc 104 mL/min (>90) BUN/Creatinine Ratio 7.3 (10.0-20.0) Serum Glucose 81 mg/dL (74-106) Calcium Level 9.6 mg/dL (8.7-10.4) Total Bilirubin 0.3 mg/dL (0.2-1.0) Aspartate Amino Transferase (AST) 22 U/L (13-40) Alanine Aminotransferase (ALT) 13 U/L (7-40) Alkaline Phosphatase 48 U/L (46-116) Total Protein 6.9 g/dL (5.7-8.2) Albumin 4.0 g/dL (3.2-4.8) Urine Color Light-yellow (Yellow) Urine Clarity Turbid (Clear) Urine pH 6.5 (5.0-9.0) Urine Specific [place] 1.030 (1.001-1.035) Urine Protein Trace (Negative) Urine Ketones 3+ (Negative) Urine Blood 3+ /uL (Negative) Urine Nitrite Negative (Negative) Urine Bilirubin Negative (Negative) Urine Urobilinogen Normal mg/dL (Negative) Urine Leukocyte Esterase Negative /uL (Negative) Urine RBC 512 /hpf (0 - 4) Urine Microscopic WBC 1 /HPF (0-5) Urine Squamous Epithelial Cells Few /hpf (<5) Urine Bacteria Few /hpf (None Seen) Urine Mucus Few (None Seen) Urine Yeast (Budding) Occasional /hpf (None Urine Glucose Normal mg/dL (Normal) Urine Test Negative (Negative) Other Laboratory Tests 02/10/25 07:06 Brief Hx & Hospital Course: SEE DICTATED NOTE Condition at Discharge: Good Final Diagnosis/Problems List KIDNEY STONE Discharge Disposition: Home Discharge Instruct/Medications Diet: Regular Activity: No Restrictions, As Tolerated Follow Up/Referral: FU WITH PCP Medications: RESUME HOME MEDS Discharge Statement: "Patient was advised to return to the ER or call 911 if any headaches, dizziness, shortness of breath, chest pain, abdominal pain, bleeding, fevers, or worsening of medical condition. Patient was counseled about treatment plan, medications, possible side effects, patient�verbalized understanding. All questions were answered to the best of my ability. This discharge took greater then 30 minutes in planning, reviewing documentation, counseling the patient, and discussing with other team members." ASSESSMENT ASSESSMENT Assessment KIDNEY STONE Date of Service: February 11, 2025 Billing Provider: JASON LAROSE MD Common Visit Codes: [id number] DISCH DAY >30min JASON LAROSE MD February 11, 2025 10:46
[2025-02-11 12:00] VITALS: BP 111/75; PULSE 54; RESP 16; TEMP 97.9; O2SAT 92
--- NOTE | 2025-02-11 12:00 | DVHDS ---
DATE OF DISCHARGE: 02/11/2025 HISTORY OF PRESENT ILLNESS: The patient is a 19-year-old lady who was admitted with complaints of abdominal pain, nausea, and vomiting and has a history of kidney stones. HOSPITAL COURSE: The patient had a CT of abdomen and pelvis that showed moderate right hydronephrosis with a 0.3 mm proximal ureteral calculus. The patient had a pelvic ultrasound that was unremarkable. The patient is currently doing well with no further pain. She had fecal impaction, but since then has had bowel activity. She will now be discharged home to resume her home medications and follow up with her primary. FINAL DIAGNOSES: * Right renal stone with hydronephrosis. * Likely fecal impaction. Time spent in discharge planning and review of plan with the patient and nursing was 36 minutes. MD DEMETRIO Beth/KATTY TID: [id number] RECEIPT: [id number]
[2025-02-11 13:00] VITALS: BP 123/78; PULSE 77; RESP 17; TEMP 97.9; O2SAT 93
== END 2025-02-11 15:20 | disposition home or self-care (01) | DRG 465 ==
LOC: ER 00:34 → OVERFLOW 07:12 → EAST 09:47
PROVIDERS: ADMIT Internal Medicine; ATTEND Internal Medicine
DX: N13.2 Hydronephrosis with renal and ureteral calculous obstruction (principal); D64.9 Anemia, unspecified; K56.41 Fecal impaction; F12.90 Cannabis use, unspecified, uncomplicated; F10.90 Alcohol use, unspecified, uncomplicated; Z79.2 Long term (current) use of antibiotics; Z79.899 Other long term (current) drug therapy; Y90.9 Presence of alcohol in blood, level not specified; Z87.442 Personal history of urinary calculi
CPT/HCPCS: 36415; 74018; 74176; 76856; 80048; 80053; 81001; 81025; 85025; 90656; 96372; 96374; 96375; G0378; J2405